=== PATIENT | female | born 1955 | race Caucasian/White ===

== ENCOUNTER 2022-09-11 09:00 | Day surgery (SDC) | payer MEDICARE, BC, SELFPAY ==
--- NOTE | 2022-09-11 09:20 | SUR.PREOP ---
Patient provided home covid negative results to RN.
--- NOTE | 2022-09-11 09:20 | SUR.PREOP ---
The eye drops brought by the patient (Ketorolac and Prednisolone) are examined and I have determined they are labeled by the patient's pharmacy for this patient as prescribed by the surgeon. The bottles are intact, recently obtained and appear to be correct.
[2022-09-11] MEDS: TETRACAINE 0.5% OPHTH 1 DROP EYE-RIGHT ×2 (09:28→09:37)
[2022-09-11 09:33] VITALS: BP 136/79; PULSE 73; RESP 16; TEMP 37.2; O2SAT 98
[2022-09-11] MEDS: KETOROLAC OPHTH 0.5% 1 DROP EYE-RIGHT ×2 (09:35→09:45)
[2022-09-11 09:42] VITALS: BMI 25.0
[2022-09-11] MEDS: SODIUM CHLORIDE 0.9 % (FLUSH) 10 ML SYRINGE IVF (09:42)
[2022-09-11] MEDS: TETRACAINE 0.5% OPHTH 2 DROP EYE-RIGHT (10:11)
--- NOTE | 2022-09-11 10:13 | W.ANESCHARGE ---
Anesthesia Charges Start Date/Time Anesthesia Start Date: 09/11/22 Anesthesia Start Time: 10:08 Stop Date/Time Anesthesia Stop Date: 09/11/22 Anesthesia Stop Time: 10:41
[2022-09-11] MEDS: BALANCED SALT IRRIG SOLN 15 ML EYE-RIGHT (10:16)
--- NOTE | 2022-09-11 10:18 | W.ANESCHARGE ---
Anesthesia Charges Start Date/Time Anesthesia Start Date: 09/11/22 Anesthesia Start Time: 10:08 Stop Date/Time Anesthesia Stop Date: 09/11/22 Anesthesia Stop Time: 10:41
[2022-09-11 10:37] VITALS: BP 130/70; PULSE 68; TEMP 36.7; O2SAT 98
--- NOTE | 2022-09-11 11:04 | P.OPTPRC_ITS ---
Procedure Note Date of procedure: 09/11/22 Will [facility] bill your pro fee for this procedure?: Yes Procedure Description: SURGEON: Cheryl Hancock MD PREOPERATIVE DIAGNOSIS: Nuclear sclerotic cataract, right eye. POSTOPERATIVE DIAGNOSIS: Nuclear sclerotic cataract, right eye. NAME OF OPERATION: Phacoemulsification of cataract with posterior chamber intraocular lens implantation in the right eye. ANESTHESIA: Topical. ESTIMATED BLOOD LOSS: Less than 2 cc. COMPLICATIONS: None. PATHOLOGY SPECIMEN: None. INDICATIONS: See consult note for details. The risks, benefits and alternatives of the procedure were explained to the patient, who elected to proceed and s igned informed consent to do so. PROCEDURE: The patient was brought to the pre-holding area where the right eye was identified as the operative eye. I placed my initials above this eye. The patient received eye drops consisting of 0.5% tetracaine, 1% tropicamide, 10% phenylephrine, and 0.5% ketorolac. The patient was then brought to the operating room where the right eye was again identified as the operative eye. The eye was prepped with Betadine and draped in the usual sterile ophthalmic fashion. A #15 super-sharp blade was used to create a paracentesis site. 1% non-preserved intracameral lidocaine was injected into the anterior chamber. Endocoat was injected into the anterior chamber. A 2.4 mm keratome was used to create a three-plane self-sealing incision 1 mm anterior to the temporal limbus. A cystotome was used to create an anterior capsular leaflet. The Utrata forceps were used to extend this to form a continuous curvilinear capsulorrhexis. Hydrodissection was performed. The cataract was removed with phacoemulsification using the [id number]-czu-scfbady technique. The irrigation and aspiration tip was used to remove the remaining cortex. Healon was injected into the capsular bag. An KARENA ZCB00 intraocular lens of 25.0 diopters was injected into the capsular bag. The irrigation and aspiration tip was used to remove the remaining viscoelastic. Balanced salt solution on a cannula was used to hydrate the wound, and the wound was found to be watertight. The pupil was noted to be round. DISPOSITION: The patient was taken to the recovery room and discharged to home in stable condition. The patient was instructed to call me or go to the emergency department with any sudden change, including dramatic loss of vision, severe pain in the eye or eyebrow region, nausea, or vomiting. The patient will follow up in the clinic tomorrow morning. Surgeon: Cheryl Hancock MD
== END 2022-09-11 11:11 | disposition home or self-care (01) ==
LOC: OR 09:05
PROVIDERS: PCP Family Medicine; Visit Provider Ophthalmology
PROC: (CPT 66984; principal; 2022-09-11 09:00)
DX: H25.11 Age-related nuclear cataract, right eye (principal)
CPT/HCPCS: 66984; 00142; A9270; J2250; J3010; V2632

== ENCOUNTER 2022-09-25 08:41 | Day surgery (SDC) | payer MEDICARE, BC, SELFPAY ==
--- NOTE | 2022-09-25 08:57 | SUR.PREOP ---
Patient provided home covid negative results to RN.
[2022-09-25] MEDS: TETRACAINE 0.5% OPHTH 1 DROP EYE-LEFT ×2 (09:10→09:19)
[2022-09-25 09:13] VITALS: BMI 25.0
[2022-09-25] MEDS: KETOROLAC OPHTH 0.5% 1 DROP EYE-LEFT ×2 (09:17→09:27)
[2022-09-25 09:18] VITALS: BP 139/86; PULSE 70; RESP 16; TEMP 36.8; O2SAT 95
[2022-09-25] MEDS: SODIUM CHLORIDE 0.9 % (FLUSH) 10 ML SYRINGE IVF (09:26)
--- NOTE | 2022-09-25 10:03 | W.ANESCHARGE ---
Anesthesia Charges Start Date/Time Anesthesia Start Date: 09/25/22 Anesthesia Start Time: 10:12 Stop Date/Time Anesthesia Stop Date: 09/25/22 Anesthesia Stop Time: 10:39
[2022-09-25] MEDS: TETRACAINE 0.5% OPHTH 2 DROP EYE-LEFT (10:15)
[2022-09-25] MEDS: BALANCED SALT IRRIG SOLN 15 ML EYE-LEFT (10:20)
[2022-09-25 10:37] VITALS: BP 131/77; PULSE 63; RESP 16; TEMP 36.1; O2SAT 95
--- NOTE | 2022-09-25 10:40 | W.ANESCHARGE ---
Anesthesia Charges Start Date/Time Anesthesia Start Date: 09/25/22 Anesthesia Start Time: 10:12 Stop Date/Time Anesthesia Stop Date: 09/25/22 Anesthesia Stop Time: 10:39
--- NOTE | 2022-09-25 10:42 | P.OPTPRC_ITS ---
Procedure Note Date of procedure: 09/25/22 Will [facility] bill your pro fee for this procedure?: Yes Procedure Description: SURGEON: Cheryl Hancock MD PREOPERATIVE DIAGNOSIS: Nuclear sclerotic cataract, left eye. POSTOPERATIVE DIAGNOSIS: Nuclear sclerotic cataract, left eye. NAME OF OPERATION: Phacoemulsification of cataract with posterior chamber intraocular lens implantation in the left eye. ANESTHESIA: Topical. ESTIMATED BLOOD LOSS: Less than 2 cc. COMPLICATIONS: None. PATHOLOGY SPECIMEN: None. INDICATIONS: See consult note for details. The risks, benefits and alternatives of the procedure were explained to the patient, who elected to proceed and sig barrie informed consent to do so. PROCEDURE: The patient was brought to the pre-holding area where the left eye was identified as the operative eye. I placed my initials above this eye. The patient received eye drops consisting of 0.5% tetracaine, 1% tropicamide, 10% phenylephrine, and 0.5% ketorolac. The patient was then brought to the operating room where the left eye was again identified as the operative eye. The eye was prepped with Betadine and draped in the usual sterile ophthalmic fashion. A #15 super-sharp blade was used to create a paracentesis site. 1% non-preserved intracameral lidocaine was injected into the anterior chamber. Endocoat was injected into the anterior chamber. A 2.4 mm keratome was used to create a three-plane self-sealing incision 1 mm anterior to the temporal limbus. A cystotome was used to create an anterior capsular leaflet. The Utrata forceps were used to extend this to form a continuous curvilinear capsulorrhexis. Hydrodissection was performed. The cataract was removed with phacoemulsification using the xnoxjp-mdy-txqaxry technique. The irrigation and aspiration tip was used to remove the remaining cortex. Healon was injected into the capsular bag. An KARENA ZCB00 intraocular lens of 26.5 diopters was injected into the capsular bag. The irrigation and aspiration tip was used to remove the remaining viscoelastic. Balanced salt solution on a cannula was used to hydrate the wound, and the wound was found to be watertight. The pupil was noted to be round. DISPOSITION: The patient was taken to the recovery room and discharged to home in stable condition. The patient was instructed to call me or go to the emergency department with any sudden change, including dramatic loss of vision, severe pain in the eye or eyebrow region, nausea, or vomiting. The patient will follow up in the clinic tomorrow morning. Surgeon: Cheryl Hancock MD
== END 2022-09-25 11:09 | disposition home or self-care (01) ==
PROVIDERS: PCP Family Medicine; Visit Provider Ophthalmology
PROC: (CPT 66984; principal; 2022-09-25 09:00)
DX: H25.12 Age-related nuclear cataract, left eye (principal)
CPT/HCPCS: 66984; 00142; A9270; J2250; J3010; V2632

== ENCOUNTER 2022-12-17 10:17 | Emergency (ER) | payer MEDICARE, BC, SELFPAY ==
[2022-12-17] VITALS (7 sets, daily range): BP systolic 184–186; BP diastolic 91–106; PULSE 60–74; RESP 18; TEMP 36.3; O2SAT 95–98; BMI 26.3
--- NOTE | 2022-12-17 11:25 | ED_ITS ---
HPI - General Adult General Date Seen: 12/17/22 Chief complaint: Hypertension Stated complaint: elevated bp Time Seen by Provider: 12/17/22 10:26 Source: patient and family Mode of arrival: ambulatory Limitations: no limitations History of Present Illness HPI narrative: Patient is a very nice 59-year-old female who I have seen in the past, presents here with hypertension, she has no specific complaints with it is just taking her blood pressures have been elevated in the 190 systolic region. I have seen her before and commented that her blood pressure is high and she should follow up with primary care but does not or has not done this. She denies any chest pain, headaches, visual changes, swelling, or history of kidney issues. She does have a history of cancer and is followed by Oncology for this. They have commented in the past that her blood pressures are high. She does have reactive airway disease likely from smoking, but has not use inhaler in years, but was significant in the past. Previous history of coronary artery disease, strokes, Really have a primary care physician, but would be interested in seeing 1. Associated symptoms: denies other symptoms Related Data Home Medications Medication Instructions Recorded Confirmed acyclovir 400 mg tablet 400 mg PO BID 09/05/22 09/25/22 bergamot extract 500 mg capsule 1,000 mg PO .QD 09/05/22 09/25/22 coenzyme Q10 100 mg capsule 100 mg PO QDAY 09/05/22 09/25/22 ibuprofen 600 mg tablet 600 mg PO Q6H PRN 09/05/22 09/25/22 sulfamethoxazole 800 1 tab PO 3XW 09/05/22 09/25/22 mg-trimethoprim 160 mg tablet Previous Rx's Medication Instructions Recorded amlodipine 2.5 mg tablet 2.5 mg PO DAILY #30 tabs 12/17/22 Allergies Allergy/AdvReac Type Severity Reaction Status Date / Time penicillin V Allergy Intermediate Rash Verified 09/05/22 09:34 Review of Systems Status of ROS: Reports: 10 or more systems reviewed and unremarkable except as noted in History and below PFSH PFS Medical History Asthma ?J45.909 - Unspecified asthma, uncomplicated (ICD-10) Port-A-Cath in place ?Z95.828 - Presence of other vascular implants and grafts (ICD-10) B-cell lymphoma ?C85.10 - Unspecified B-cell lymphoma, unspecified site (ICD-10) Social History Smoking Status: Never smoker Do you use any of these nicotine containing products: None Second hand tobacco smoke exposure: No How often do you have a drink containing alcohol: monthly or less How many standard drinks containing alcohol do you have on a typical day: 1 or 2 How often do you have six or more drinks on one occasion: Never AUDIT-C Alcohol total score: 1 Non-prescribed substance use: denies use Caffeine: Yes (coffee) Are you using contraception or practicing any form of control: No service: No Exam Narrative: Exam Narrative: Patient is seen in room 1 she is active energetic and engaging. She has the in no distress, pupils are equal round reactive to light there is no scleral icterus redness TMs are normal oropharynx is normal there is no adenopathy anterior posterior chains, neck is supple full range of motion is elicited, JVP is flat carotid upstrokes are normal bilaterally, chest is good air entry bilaterally with no wheezing crackles noted easy respirations, heart sounds no clicks murmurs or gallops, no extra sounds, abdomen is soft and slightly obese, no organomegaly, no tenderness, no CVA tenderness, she has no swelling noted bilaterally. I was able to from the epic labs note that she had labs done yesterday, which show a normal BUN and creatinine, with the GFR of 87 hemoglobin was normal at 13.7 total protein normal, but no urinalysis was done. Following up today guidelines, I think given her history, initially want to start her on a combination medications such as low trial, but elected instead to start her on amlodipine, we will give her 5 year and started on 2.5, and have her follow up with primary care, I made an appt appointment, Const: Vital Signs, click to edit/add: Vital Signs - 24 hr 12/17/22 10:25 12/17/22 10:54 12/17/22 11:00 Temperature 97.3 F L Pulse Rate 60 69 Pulse Rate [Pulse Oximeter] 70 Respiratory Rate 18 Blood Pressure Blood Pressure [Ri ght Upper Arm] 186/106 H Pulse Oximetry 98 96 98 Oxygen Delivery Me thod Room Air 12/17/22 11:02 12/17/22 11:10 12/17/22 11:20 Temperature Pulse Rate 74 69 63 Pulse Rate [Pulse Oximeter] Respiratory Rate Blood Pressure 184/91 H Blood Pressure [Ri ght Upper Arm] Pulse Oximetry 95 96 96 Oxygen Delivery Me thod 12/17/22 11:30 Temperature Pulse Rate 67 Pulse Rate [Pulse Oximeter] Respiratory Rate Blood Pressure Blood Pressure [Ri ght Upper Arm] Pulse Oximetry 97 Oxygen Delivery Me thod Documenting provider has reviewed patient's vital signs: yes Course Vital Signs Vital signs: Initial Vital Signs Temperature 97.3 F L 12/17/22 10:25 Temperature Source Temporal Artery Scan 12/17/22 10:25 Pulse Rate 70 12/17/22 10:25 Pulse Rhythm Regular 12/17/22 10:25 Respiratory Rate 18 12/17/22 10:25 Blood Pressure 186/106 H 12/17/22 10:25 Blood Pressure Mean 132 H 12/17/22 10:25 Blood Pressure Position Supine 12/17/22 10:25 Pulse Oximetry 98 12/17/22 10:25 Oxygen Delivery Method Room Air 12/17/22 10:25 Vital Signs Temperature 97.3 F L 12/17/22 10:25 Pulse Rate 70 12/17/22 10:25 Respiratory Rate 18 12/17/22 10:25 Blood Pressure 186/106 H 12/17/22 10:25 Pulse Oximetry 98 12/17/22 10:25 Oxygen Delivery Method Room Air 12/17/22 10:25 Temperature 97.3 F L 12/17/22 10:25 Pulse Rate 67 12/17/22 11:30 Respiratory Rate 18 12/17/22 10:25 Blood Pressure 184/91 H 12/17/22 11:02 Pulse Oximetry 97 12/17/22 11:30 Oxygen Delivery Method Room Air 12/17/22 10:25 Medical Decision Making MDM Narrative Medical decision making narrative: During this evaluation I considered multiple diagnosis including malignant tension, kidney issues, chest pain, myocardial infarction, stroke, use of illicit substances. Medical Records Medical records reviewed: Yes I reviewed the patient's medical records Lab Data Lab results reviewed: Yes I reviewed the patient's lab results Labs: Reviewed the labs from the epic chart ECG Data Attestation: I personally reviewed and interpreted this ECG as follows: Prior ECG tracings: not available for review Interpretation: EKG shows normal sinus rhythm, slightly bradycardic at 56, no acute ST wave changes. Discharge Plan Discharge Clinical Impression: Hypertension Patient Disposition: Home w/ Parent or Adult Condition: Stable Instructions: Chronic Hypertension (ED), Hypertension (ED), Hypertension in the Older Adult (ED) Additional Instructions: I will start you on a medication for your hypertension, I think follow-up with the doctor we will arrange an appointment is [place]. We could start you on a simple diuretic although I do not think this is going to work free of, a combination seems to be a better choice. There can be a bit of a cough and slight ankle swelling with this combination, will see how it goes, I do want avoid a certain class of medications as noted in her chart I can cause some wheezing and shortness of breath. Follow up appointment is scheduled at the [facility] on 12/19 with a 12:45pm appointment time. Please arrive 10 minutes early to check in. If you have any questions or need to reschedule, please call [phone]. [address] [address] Activity Level: Light activity Discharge Diet: Regular Prescriptions: New amlodipine 2.5 mg tablet 2.5 mg PO DAILY Qty: 30 2RF No Action sulfamethoxazole-trimethoprim 800-160 mg tablet 1 tab PO 3XW acyclovir 400 mg tablet 400 mg PO BID ibuprofen 600 mg tablet 600 mg PO Q6H PRN coenzyme Q10 100 mg capsule 100 mg PO QDAY bergamot extract 500 mg capsule 1,000 mg PO .QD Follow Up/Referrals: Rick Perez MD [Primary Care Provider] - Gino Patel MD [Staff Physician] - Stand Alone Forms: [facility] Info Instructions
[2022-12-17] MEDS: AMLODIPINE 5 MG TABLET PO (11:40)
== END 2022-12-17 11:43 | disposition home or self-care (01) ==
LOC: ED 11:11
PROVIDERS: Emergency Provider Family Medicine; PCP Family Medicine
DX: I10 Essential (primary) hypertension (principal)
CPT/HCPCS: 93005; 99283; 99284; A9270

== ENCOUNTER 2023-02-25 11:16 | Outpatient (CLI) | payer MEDICARE, BC, SELFPAY | END 2023-02-25 11:17 | disposition home or self-care (01) | PROVIDERS: PCP Family Medicine; Visit Provider Family Medicine | DX: Z00.00 Encounter for general adult medical examination without abnormal findings (principal); E78.5 Hyperlipidemia, unspecified; I10 Essential (primary) hypertension | CPT/HCPCS: 80053; 80061; 84443 ==